=== PATIENT | male | born 1990 | race African-American/Black ===

== ENCOUNTER 2018-09-11 11:42 | Emergency (ER) | payer MEDICAID ==
[2018-09-11 11:52] VITALS: BP 133/77
[2018-09-11] MEDS ORDERED: guaiFENesin/CODIEN 100MG-10MG* 5 ML UDC PO ONE (13:37)
[2018-09-11 14:34] LABS: Influenza A Molecular POSITIVE (Negative)
--- NOTE | 2018-09-11 15:06 | ED ---
Influenza-Like Illness - HPI Summary HPI Summary: Patient is a 27-year-old male who presents to the ED with feeling of sore throat , cough, congestion, body aches which have been present 2 weeks, however worse over the past 24 hours. He continues to eat and drink okay. Denies known sick contacts. He is otherwise healthy. He takes no medications. He has not tried any [id number] medications for relief. - History of Current Complaint Chief Complaint: EDGeneral Time Seen by Provider: 09/11/18 12:10 Hx Obtained From: Patient Onset/Duration: Sudden Onset, Lasting Weeks Severity: Worse Since: - last night Associated Signs & Symptoms: Fever, F/C, Myalgia, Cough, Sore Throat, Nasal Congestion, Headache Related Hx: Possible Flu/Infectious Exposure - Risk Factors Influenza Risk Factors: Negative - Allergy/Home Medications Allergies/Adverse Reactions: Allergies Allergy/AdvReac Type Severity Reaction Status Date / Time No Known Allergies Allergy Verified 09/11/18 11:52 PMH/Surg Hx/FS Hx/Imm Hx Previously Healthy: Yes - Immunization History Hx Pertussis Vaccination: No Immunizations Up to Date: Yes Infectious Disease History: No Infectious Disease History: Denies: Traveled Outside the [place] in Last 30 Days - Social History Occupation: Employed Full-time Lives: With Family Alcohol Use: Occasionally Hx Substance Use: No Substance Use Type: Reports: None Hx Tobacco Use: No Smoking Status (MU): Never Smoked Tobacco Review of Systems Positive: Fever, Chills, Fatigue, Skin Diaphoresis Positive: Erythema. Negative: Photophobia, Blurred Vision, Diplopia, Drainage Positive: Sore Throat, Nasal Discharge Negative: Palpitations, Chest Pain Positive: Shortness Of Breath, Cough Negative: Abdominal Pain, Vomiting, Diarrhea, Nausea Genitourinary: Negative Positive: no symptoms reported, see HPI Positive: Myalgia Positive: Weakness All Other Systems Reviewed And Are Negative: Yes Physical Exam Triage Information Reviewed: Yes Vital Signs On Initial Exam: Initial Vitals Temp Pulse Resp BP Pulse Ox 98.5 F 100 19 133/77 96 09/11/18 11:49 09/11/18 11:49 09/11/18 11:49 09/11/18 11:49 09/11/18 11:49 Vital Signs Reviewed: Yes Appearance: Positive: Ill-Appearing Skin: Positive: Skin Color Reflects Adequate Perfusion, Dry Head/Face: Positive: Normal Head/Face Inspection Eyes: Positive: EOMI, Conjunctiva Inflammed ENT: Positive: Nasal congestion, Nasal drainage, Uvula midline. Negative: Pharyngeal erythema, Tonsillar swelling, Tonsillar exudate, Dental tenderness, Sinus tenderness Neck: Positive: Supple, No Lymphadenopathy Respiratory/Lung Sounds: Positive: Clear to Auscultation, Breath Sounds Present Cardiovascular: Positive: RRR, Pulses are Symmetrical in both Upper and Lower Extremities Neurological: Positive: Sensory/Motor Intact, Speech Normal Psychiatric: Positive: Affect/Mood Appropriate AVPU Assessment: Alert - [place] Coma Scale Best Eye Response: 4 - Spontaneous Best Motor Response: 6 - Obeys Commands Best Verbal Response: 5 - Oriented Coma Scale Total: 15 Diagnostics - Vital Signs Vital Signs Temp Pulse Resp BP Pulse Ox 09/11/18 15:01 98 F 90 16 133/77 99 09/11/18 11:49 98.5 F 100 19 133/77 96 - Laboratory Lab Results: Lab Results 09/11/18 09/11/18 Range/Units 13:52 14:29 Influenza A (Rapid) Positive A (Negative) Group A Strep Rapid Negative (Negative) Lab Statement: Any lab studies that have been ordered have been reviewed, and results considered in the medical decision making process. Flu Symptom Course/Dx - Course Course Of Treatment: During the course treatment, the patient's evaluated for cough, congestion, subjective fevers, body aches. Strep negative, flu A+, chest x-ray read as no acute cardio pulmonary disease. Discussed results with patient. On physical examination, lungs CTA, RRR. Patient appears ill, conjunctival injection, however vital signs are stable. He is discharged with Tamiflu and will follow up with his PCP. He is given strict return precautions. - Diagnoses Differential Diagnosis/HQI/PQRI: Positive: Influenza Provider Diagnoses: Influenza A Discharge - Sign-Out/Discharge Documenting (check all that apply): Patient Departure Patient Received Moderate/Deep Sedation with Procedure: No - Discharge Plan Condition: Stable Disposition: HOME Prescriptions: Oseltamivir CAP* [Tamiflu CAP*] 75 mg PO BID #10 cap Patient Education Materials: Influenza (ED) Referrals: No Primary Care Phys,NOPCP [Primary Care Provider] - Additional Instructions: Drink plenty of fluids Tamiflu twice daily 5 days Avoid contact with anyone in the house 2 days Obtain [id number] Robitussin for any cough symptoms Rest as much as possible - Billing Disposition and Condition Condition: STABLE Disposition: Home
== END 2018-09-11 15:01 | disposition home or self-care (01) ==
LOC: ED 11:42
DX: J11.1 Influenza due to unidentified influenza virus with other respiratory manifestations (principal); R50.9 Fever, unspecified; R05 Cough; J02.9 Acute pharyngitis, unspecified; L53.9 Erythematous condition, unspecified
CPT/HCPCS: 71046; 87651; 99282; A9270-GY

== ENCOUNTER 2019-04-25 11:59 | Emergency (ER) | payer MEDICAID ==
[2019-04-25 13:25] VITALS: BP 123/76
--- NOTE | 2019-04-26 06:51 | ED ---
Throat Pain/Nasal Congestion - HPI Summary HPI Summary: Pt. is a 28 y.o male who presents to the ER for redness, pain and swelling to his left upper eyelid x 2 days. Pt. states he had a mild URI infection last week that has resolved. Pt. does not wear contact lenses. Denies trauma. Sxs are mild in severity. No current modifying factors. - History of Current Complaint Chief Complaint: EDEyeProblem Time Seen by Provider: 04/25/19 12:38 Hx Obtained From: Patient - Allergies/Home Medications Allergies/Adverse Reactions: Allergies Allergy/AdvReac Type Severity Reaction Status Date / Time No Known Allergies Allergy Verified 09/11/18 11:52 Home Medications: Home Medications Ibuprofen TAB* [Advil TAB*] 200 mg PO Q6H PRN 04/25/19 [History Confirmed ] PMH/Surg Hx/FS Hx/Imm Hx Previously Healthy: Yes Infectious Disease History: No Infectious Disease History: Denies: Traveled Outside the [place] in Last 30 Days - Family History Known Family History: Positive: Non-Contributory - Social History Occupation: Employed Full-time Lives: With Family Alcohol Use: Occasionally Hx Substance Use: No Substance Use Type: Reports: None Hx Tobacco Use: No Smoking Status (MU): Light Every Day Tobacco Smoker Review of Systems Constitutional: Negative Negative: Fever, Chills Positive: Drainage, Erythema ENT: Negative Cardiovascular: Negative Respiratory: Negative Skin: Negative Neurological: Negative All Other Systems Reviewed And Are Negative: Yes Physical Exam Triage Information Reviewed: Yes Vital Signs On Initial Exam: Initial Vitals Temp Pulse Resp BP Pulse Ox 98.1 F 96 16 143/79 96 04/25/19 12:07 04/25/19 12:07 04/25/19 12:07 04/25/19 12:07 04/25/19 12:07 Vital Signs Reviewed: Yes Appearance: Positive: Well-Appearing Skin: Positive: Warm, Dry Head/Face: Positive: Normal Head/Face Inspection Eyes: Positive: Other: - Right eye unremarkable. Left upper eyelid with erythema , edema and pain. Conjunctiva injected. Small amount of yellowish drainage. EOMI without pain. No perioral erythema. ENT: Positive: Pharynx normal, TMs normal Neck: Positive: Supple, Nontender Neurological: Positive: Normal, CN Intact II-III Psychiatric: Positive: Affect/Mood Appropriate Diagnostics - Vital Signs Vital Signs Temp Pulse Resp BP Pulse Ox 04/25/19 13:24 98.1 F 80 16 123/76 99 04/25/19 12:07 98.1 F 96 16 143/79 96 - Laboratory Lab Statement: Any lab studies that have been ordered have been reviewed, and results considered in the medical decision making process. EENT Course/Dx - Course Course Of Treatment: Pt. with erythema and edema to eyelid. Afebrile and well appearing. Will tx with erythromycin ointment and warm compresses. To f.u with ophtho within one week if sxs persist. To return to ER if sxs change or worsen. - Differential Diagnoses Differential Diagnoses: Allergic Rhinitis, Conjunctivitis, Periorbital/Orbital Cellulitis - Diagnoses Provider Diagnoses: Blepharitis Discharge ED - Sign-Out/Discharge Documenting (check all that apply): Patient Departure Patient Received Moderate/Deep Sedation with Procedure: No - Discharge Plan Condition: Good Disposition: HOME Prescriptions: Erythromycin OPTH OINT* [Erythromycin 0.5% OPTH OINT*] 1 applic LEFT EYE TID 10 Days #1 ophth.oint Patient Education Materials: Blepharitis (ED) Forms: *Work Release Referrals: Ihsan Foley MD [Medical Doctor] - Additional Instructions: Follow up with eye doctor within one week if symptoms do not improve Use antibiotic as directed Apply warm compresses to eye 3-4 times a day Avoid rubbing eye Return to ER if symptoms change or worsen - Billing Disposition and Condition Condition: GOOD Disposition: Home
== END 2019-04-25 13:23 | disposition home or self-care (01) ==
LOC: ED 11:59
DX: H01.009 Unspecified blepharitis unspecified eye, unspecified eyelid (principal); F17.210 Nicotine dependence, cigarettes, uncomplicated
CPT/HCPCS: 99282